=== PATIENT | male | born 1955 | race Caucasian/White ===

== ENCOUNTER 2017-02-06 05:57 | Outpatient (CLI) | payer OTHER ==
[~2017-02-06] VITALS: Ht 177.8 cm; Wt 94.3 kg
[2017-02-06] MEDS ORDERED: OMEP20TA7 PO (12:52)
[2017-02-06] MEDS ORDERED: SIMV20TA3 PO (12:52)
== END 2017-02-06 12:54 ==
LOC: PREOP 05:57
PROVIDERS: ATTEND Internal Medicine
DX: Z01.818 Encounter for other preprocedural examination (principal); Z12.11 Encounter for screening for malignant neoplasm of colon

== ENCOUNTER 2017-02-09 08:05 | Day surgery (SDC) | payer OTHER ==
--- NOTE | 2017-01-24 21:48 | HISTORY AND PHYSICAL ---
DATE OF SERVICE: PROCEDURES: Colonoscopy and EGD. HISTORY OF PRESENT ILLNESS: The patient is a 61-year-old, white male referred by Dr. Pritchett for screening colonoscopy. He has had increased problems with heartburn over the past several years, taking omeprazole daily. He has a problem with throat clearing and intermittent hoarseness. He denies dysphagia, melena or bright red blood per rectum. He does have a long history of smokeless tobacco use, currently at about a can per day. He denies any oral sores present or past. His weight has been stable. He has had a recent change in his bowel habit with frequency. He has intermittent abdominal cramping. PAST MEDICAL HISTORY: Significant for intermittent gout, about 2 attacks per year that respond to indomethacin that he just takes for several days that usually knocks out his attack. He will occasionally use ibuprofen or Aleve for muscle pain. He has a past history of hyperlipidemia, on statin therapy with no known history of coronary artery, cerebrovascular or peripheral vascular disease. FAMILY HISTORY: His mother at the age of 91 and did have history of colon polyps, but no known history of cancer. His father at the age of 43 secondary to an NM. Grandfather at the age of 73 of gastric cancer. Grandmother of breast cancer at the age of 82. 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 SOCIAL HISTORY: He is employed, , reports he drank 6 to 12 beers per day and chews a can of smokeless tobacco daily. PHYSICAL EXAMINATION: GENERAL: Reveals a pleasant, white male who appears to be in no acute distress. VITAL SIGNS: Weight is 209 pounds, blood pressure 146/86. HEENT: Unremarkable. Oral cavity is clear, no ulceration or erythema is noted. He has a Mallampati class 2 configuration. NECK: Revealed no JVD, adenopathy or bruits. CHEST: Clear. CARDIOVASCULAR: Revealed a regular rate and rhythm without murmur, S3 or S4. ABDOMEN: Soft, supple, without mass, organomegaly or tenderness. EXTREMITIES: Revealed no cyanosis, clubbing or edema. ASSESSMENT: 1. The patient was set up for screening colonoscopy, his first. Prep instructions with Suprep were given, and questions were answered. 2. For evaluation of progressive reflux symptoms despite omeprazole in an individual with significant alcohol consumption and smokeless tobacco. I strongly recommended that he cut back on alcohol, as well as chewing tobacco, as they are both risk factors potentially for gastrointestinal tract malignancy. We will need to rule out Hardy's change on his EGD. I thank you for the referral of this pleasant gentleman. Job ID: [id number] DocumentID: [id number] Dictated Date: 01/24/2017 20:46:21 Inner Tube Cutter Date: 01/24/2017 21:48:13 Dictated By: YOVANY GENTILE MD
[~2017-02-09] VITALS: Ht 177.8 cm; Wt 94.3 kg
[~2017-02-09 08:05] MED LIST: OMEP20TA7 PO; SIMV20TA3 PO
[2017-02-09] MEDS ORDERED: 1/2 NS IV SOLUTION 1,000 ML IV STA (08:14)
[2017-02-09] MEDS ORDERED: LIDOCAINE JELLY 2% (XYLOCAINE) 5 ML TUBE MM PRN (08:15)
[2017-02-09] MEDS ORDERED: NALOXONE 0.4 MG/ML 1 ML (NARCAN) VIAL IVP PRN (08:15)
[2017-02-09] MEDS ORDERED: HURRICAINE EXT TUBE (BENZOCAINE) XX PRN (08:15)
[2017-02-09] MEDS ORDERED: FLUMAZENIL (ROMAZICON) 0.1 MG/ML 5 ML VIAL INJ PRN (08:15)
--- NOTE | 2017-02-09 08:29 | Pre-Op Note & Conscious Sedat ---
Pre-Operative Progress Note H&P Reviewed The H&P was reviewed, patient examined and no changes noted. Date H&P Reviewed: February 09, 2017 Time H&P Reviewed: 08:29 Conscious Sedation Pre-Proced ASA Class: 2 Airway Mallampati Classification: ([place] appropriate class) I. II. III, IV Lungs Heart ASA score ASA 1: a normal healthy patient ASA 2: a patient with a mild systemic disease (mid diabetes, controlled hypertension, obesity ASA 3: a patient with a severe systemic disease that limits activity (angina , COPD, prior Myocardial infarction) ASA 4: a patient with an incapacitating disease that is a constant threat to life (CHF, renal failure) ASA 5: a moribund patient not expected to survive 24 hrs. (ruptured aneurysm) ASA 6: a declared brain patient whose organs are being harvested. For emergent operations, add the letter E after the classification Grade 3 Sedation Plan: Analgesia, Amnesia, Plan communicated to team members, Discussed options with patient/fam, Discussed risks with patient/fam Note The patient is an appropriate candidate to undergo the planned procedure, sedation, and anesthesia. The patient immediately re-assessed prior to indication. YOVANY GENTILE MD February 09, 2017 08:29
[2017-02-09 08:35] VITALS: BP 135/91
[2017-02-09] MEDS ORDERED: MIDAZOLAM 2 MG/2 ML (VERSED) VIAL ONE ×4 (08:39→09:27)
[2017-02-09] MEDS ORDERED: LIDOCAINE JELLY 2% (XYLOCAINE) 5 ML TUBE ONE (08:40)
[2017-02-09] MEDS ORDERED: fentaNYL INJECTION 100 MCG/2 ML AMP ONE ×2 (08:40)
[2017-02-09] MEDS ORDERED: HURRICAINE EXT TUBE (BENZOCAINE) ONE (08:41)
[2017-02-09] MEDS: fentaNYL INJECTION 100 MCG/2 ML AMP IVP PRN ×2 (08:57→09:05)
[2017-02-09] MEDS: MIDAZOLAM 2 MG/2 ML (VERSED) VIAL IVP PRN ×4 (09:00→09:30)
[2017-02-09 09:45] VITALS: BP 107/72
[2017-02-09 10:15] VITALS: BP 119/80
[2017-02-09 10:50] VITALS: BP 119/80
--- NOTE | 2017-02-09 14:31 | OPERATIVE REPORT ---
DATE OF SERVICE: PROCEDURE: Panendoscopy. INDICATIONS: Colonoscopy was performed for screening purposes and EGD was performed for evaluation of reflux with risk factors for Hardy's esophagus. DESCRIPTION OF PROCEDURE: The patient was placed in the left lateral decubitus position. Prior to undergoing colonoscopy, digital rectal evaluation was performed. Anal sphincterotome was normal and the perianal reflex was intact. Prostate is mildly enlarged, nontender and anodular on digital inspection. No other abnormalities were noted on digital inspection of the anal canal or distal rectal vault. The colonoscope was then inserted into the rectum and under direct visualization advanced to the cecum. The cecum was identified by identification of the ileocecal valve, cecal strap and the appendiceal orifice. Photographic documentation was obtained. A careful inspection was made as the colonoscope was withdrawn. FINDINGS: There was no evidence for internal or external hemorrhoids and the rectum was unremarkable. Present it the distal sigmoid colon was a diminutive 5-mm polyp. It was biopsied and ablated and submitted for histopathology with no subsequent blood loss. A moderate number, medium to large size sigmoid diverticula were present with significant haustral hypertrophy. There was no evidence for diverticulitis. The remainder of the sigmoid colon was otherwise unremarkable. The descending colon, transverse colon, ascending colon and cecum were unremarkable. ASSESSMENT: 1. Moderate diverticular disease confined to the sigmoid colon was present without evidence for diverticulitis. 2. One diminutive polyp was removed via hot forceps from the distal sigmoid colon. As long as there are no surprises on histopathology report, we will likely be abdicating 10-year screening interval as long as there continues to be no evidence with no family history for colon cancer. We then proceeded with an esophagogastroduodenoscopy. The endoscope was inserted into the oral cavity and under direct visualization, the esophagus was intubated. The scope was passed down the esophagus through the stomach and second portion of the duodenum. A careful inspection was made as the endoscope was withdrawn. FINDINGS: The posterior hypopharynx, arytenoid aperture and true and false vocal folds were unremarkable. The proximal, mid and distal esophagus were unremarkable save for evidence for sphincter laxity. There was no evidence for erosive esophagitis. A biopsy was obtained from the Z-line and submitted for histopathology. There was no evidence for hiatal hernia. The fundus and stomach were unremarkable. There was some mild antral erythema. Biopsies obtained and submitted for Helicobacter. The pylorus, pyloric channel, the duodenal bulb and second portion of the duodenum were unremarkable. ASSESSMENT: There was evidence to suggest lower esophageal sphincter laxity without evidence for erosive esophagitis or Hardy's change. Mild antral erythema was present. A biopsy was obtained and submitted for Helicobacter evaluation. This was an otherwise normal esophagogastroduodenoscopy and the patient was reassured by today's findings. Job ID: [id number] DocumentID: [id number] Dictated Date: 02/09/2017 11:01:13 Shoe Lacer Date: 02/09/2017 13:59:22 Dictated By: YOVANY GENTILE MD MTDD
== END 2017-02-09 10:50 | disposition home or self-care (01) ==
LOC: ENDO 08:05
PROVIDERS: ATTEND Internal Medicine
DX: Z12.11 Encounter for screening for malignant neoplasm of colon (principal); D12.5 Benign neoplasm of sigmoid colon; K57.30 Diverticulosis of large intestine without perforation or abscess without bleeding; K21.9 Gastro-esophageal reflux disease without esophagitis; E78.5 Hyperlipidemia, unspecified; Z72.89 Other problems related to lifestyle; F17.220 Nicotine dependence, chewing tobacco, uncomplicated